=== PATIENT | female | born 1955 | race Caucasian/White ===

== ENCOUNTER → 2018-05-18 | Day surgery (SDC) | payer OTHER ==
[2018-05-17 11:29] LABS: ANION GAP 12.4 mmol/L (8-16); BLOOD UREA NITROGEN 19 mg/dL (7-26); BUN/CREATININE RATIO 24 (6-25); CALCIUM 10.9 mg/dL (8.4-10.2); CARBON DIOXIDE 29 mmol/L (22-29); CHLORIDE 103 mmol/L (98-107); CREATININE, SERUM 0.79 mg/dL (0.57-1.11); EST GLOMERULAR FILTRATION RATE > 60 ML/MIN (60-); GLUCOSE 100 mg/dL (74-118); POTASSIUM 4.4 mmol/L (3.5-5.1); SODIUM 140 mmol/L (136-145)
--- NOTE | 2018-05-17 11:47 | Diagnostic Imaging Report ---
PROCEDURE: Frontal and lateral views of the chest. COMPARISON: Patients [facility], , CHEST 2 VIEWS, 04/12/2016, 13:04. INDICATIONS: PREOPERATIVE CHEST XRAY FOR RIGHT FOOT SURGERY FINDINGS: Lines/tubes: None. Lungs: The lungs are well inflated and clear. There is no evidence of pneumonia or pulmonary edema. Pleura: There is no pleural effusion or pneumothorax. Heart and mediastinum: The heart and the mediastinum are normal. Bones: No acute bony abnormality. IMPRESSION: 1. No acute cardiopulmonary abnormalities. Yasir Cerna M.D. Dictated by: Yasir Cerna M.D. on 05/17/2018 at 11:51 Electronically approved by: Yasir Cerna M.D. on 05/17/2018 at 11:51
[~2018-05-18] MED LIST: ACETAMINOPHEN 1000 MG/100 ML IV ONE; BUPIVACAINE HCL 0.5% INJ 30 ML VIAL INJ ONE; CEFAZOLIN SOD 1 GM VIAL ONE; CEFAZOLIN SOD 2 GM/D5W 50ML 0 ML IV ONE; DEXAMETHASONE SOD PHOS INJ 4 MG/ML VIAL ONE; EPHEDRINE SULFATE INJ 50 MG/10 ML SYR ONE; FENTANYL CITRATE/PF 100MCG/2 ML INJ ONE; HYDROCHLOROTHIA25 MG PO; KETOROLAC TROMETHAMINE 30 MG/ML VIAL ONE; LIDOCAINE HCL 2% LOCAL INJ 5 ML SDV VIAL INJ ONE; MELOXICAM7.5 MG PO; MIDAZOLAM HCL 2 MG/2 ML VIAL ONE; MUPIROCIN 2% OINT 22 GM TUBE ONE; ONDANSETRON HCL INJ 2 MG/ML VIAL ONE; PROPOFOL IV EMULSION 10 MG/ML 20 ML VIAL ONE; RANITIDINE PO; SEVOFLURANE INHAL SOLN 250 ML PEN BTL ONE; VICTOZA 3-0.6 MG/0.1 INJ
--- NOTE | 2018-05-18 08:18 | Operative Report ---
DATE OF PROCEDURE: May 18, 2018 PREOPERATIVE DIAGNOSES 1. Right hallux rigidus. 2. 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 POSTOPERATIVE DIAGNOSES 1. Right hallux rigidus. 2. 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 PLANNED PROCEDURES 1. Right Hooper bunionectomy with implant. 2. Right excision of 2nd interspace neuroma. SURGEON: Dr. Robel DPM ESTIMATOR JEWELRY: Alfred Amezquita DPM ANESTHESIA: General with a postoperative block consisting of 15 mL of 0.5% Marcaine plain mixed with 1 mL of dexamethasone phosphate. HEMOSTASIS: Pneumatic thigh tourniquet set at 350 mmHg for a total time of approximately 40 minutes. MATERIALS: One into bone size 2 reference toe reimplant, 2-0 Vicryl, 3-0 Vicryl, 4-0 Prolene. ESTIMATED BLOOD LOSS: Less than 10 mL. PATHOLOGY: None. PROCEDURE NOTE: The patient was seen in the preoperative waiting room where the correct procedure and site was identified. The patient was brought into the operating room and placed on the operating table in the supine position. General anesthesia was initiated at this time. A well-padded pneumatic tourniquet was placed about the patient's right thigh. The right foot, ankle and leg was then scrubbed, prepped and draped in the usual aseptic manner. The right foot, ankle and leg was exsanguinated with an Esmarch bandage. The pneumatic thigh tourniquet was inflated to 350 mmHg for a total time of approximately 40 minutes. Attention was directed to the dorsomedial aspect of the patient's right 1st metatarsophalangeal joint where a 5 cm curvilinear incision was made over the 1st metatarsophalangeal joint medial to the extensor hallucis longus tendon. The incision was carried through the subcutaneous tissues them from deeper underlying structures. All vital neurovascular structures were identified and retracted medially and laterally, and all bleeders were cauterized or ligated as deemed necessary. Utilizing a sagittal saw, the base of the proximal phalanx approximately one-third was resected and passed off to the back table. Next, utilizing a sagittal saw, the medial imminence and dorsal imminence of the 1st metatarsal head was excised and passed off to the back table. The distal articular cartilage was excised. Prior to removing the articular cartilage, it was noted to be greater than 50% denuded articular surfaces at the metatarsal head, as well as the base of the proximal phalanx. At this point, per wind turbine mechanic protocol, a drill guide was placed into the 1st metatarsal head. This was confirmed via intraoperative fluoroscopy to be in the correct location. Next, the proximal reamer was placed over the guidewire to allow for the whole for the seating of the implant. Next, guidewire was placed in the resected proximal phalanx again confirmed via intraoperative fluoroscopy. The distal reamer was utilized to create the space for the distal portion of the implant. Next, utilizing the grommet clasp, the grommets were placed and tamped into position. Next, the implant which had been soaking in Bacitracin and sterile saline was placed into the operative site and found to be functioning appropriately. This was confirmed via intraoperative fluoroscopy. the wound was then flushed with copious amounts of sterile saline. Capsule and deep tissue were reapproximated with 2-0 Vicryl, subcutaneous tissue with 3-0 Vicryl, and the skin was closed using a running interlocking stitch of 4-0 Prolene. Excision of 2nd interspace neuroma, right foot. A 4 cm linear incision was made directly over the 2nd interspace in between the 2nd and 3rd metatarsals. The incision was carried through the subcutaneous tissues them from deeper underlying structures. All vital neurovascular structures were identified and retracted medially and laterally, and all bleeders were cauterized or ligated as deemed necessary. At this time, the deep transverse metatarsal ligament was incised to allow for good visualization of the interspace. The interdigital nerve with its proper digital branches were identified. They were noted to be inflamed and tortuous at the bifurcation. This was dissected distally, cut at the proper digital branches, dissected proximally, and allowed to retract into the foot. The wound was then flushed with copious amounts of sterile saline. Deep tissue was reapproximated with 3-0 Vicryl, and the skin was closed using a running interlocking stitch with 4-0 Prolene. Both incision sites were dressed with Adaptic, 4 x 4's, Kerlix, Cb wrap, and a postop shoe. The patient tolerated the procedure and anesthesia well. The patient was transferred to the postoperative recover unit with vital signs stable and vascular status intact. The patient was monitored there for a short period of time before being sent home with the following written and oral instructions: 1. Keep the dressing clean, dry and intact. 2. The patient is to remain partial weightbearing in a postop shoe, and to avoid excessive ambulation until being seen in the office. 3. The patient was given the office number and instructed to contact us if any problems should arise. DICTATED BY ALFRED AMEZQUITA DPM Job#: [id number] LEN
== END | disposition home or self-care (01) ==
LOC: OR 05:03
PROVIDERS: ATTEND Podiatrist Foot & Ankle Surgery
DX: M20.21 Hallux rigidus, right foot (principal); G57.61 Lesion of plantar nerve, right lower limb; E11.9 Type 2 diabetes mellitus without complications; I10 Essential (primary) hypertension; Z01.810 Encounter for preprocedural cardiovascular examination; Z01.812 Encounter for preprocedural laboratory examination; Z01.818 Encounter for other preprocedural examination; Z79.84 Long term (current) use of oral hypoglycemic drugs
CPT/HCPCS: 28080; 28291; 36415 ×2; 71046; 80048; 82948; 93005; J0690; J1100; J1885; J2001; J2250; J2405; L8642

== ENCOUNTER → 2020-07-15 | Day surgery (SDC) | payer OTHER ==
[2020-07-10 11:03] LABS: ANION GAP 16.7 mmol/L (8-16); BLOOD UREA NITROGEN 16 mg/dL (7-26); BUN/CREATININE RATIO 18 (6-25); CALCIUM 9.2 mg/dL (8.4-10.2); CARBON DIOXIDE 26 mmol/L (22-29); CHLORIDE 102 mmol/L (98-107); CREATININE, SERUM 0.89 mg/dL (0.57-1.11); EST GLOMERULAR FILTRATION RATE > 60 ML/MIN (60-); GLUCOSE 92 mg/dL (74-118); POTASSIUM 3.7 mmol/L (3.5-5.1); SODIUM 141 mmol/L (136-145)
[~2020-07-15] MED LIST changes: -ACETAMINOPHEN 1000 MG/100 ML IV ONE; -CEFAZOLIN SOD 1 GM VIAL ONE; +CEFAZOLIN SOD 1 GM/NS 50ML 50 ML IV ONE; -CEFAZOLIN SOD 2 GM/D5W 50ML 0 ML IV ONE; +DICLOFENAC SODI25 MG; -EPHEDRINE SULFATE INJ 50 MG/10 ML SYR ONE; -LIDOCAINE HCL 2% LOCAL INJ 5 ML SDV VIAL INJ ONE; +LIPITOR20 MG PO; -MUPIROCIN 2% OINT 22 GM TUBE ONE; -ONDANSETRON HCL INJ 2 MG/ML VIAL ONE; +ONDANSETRON HCL INJ 2MG/ML 2ML 2 MG/ML VIAL ONE
[2020-07-15 08:45] VITALS: BP 136/84
--- NOTE | 2020-07-15 09:51 | Operative Report ---
DATE OF PROCEDURE: 07/15/2020 SURGEON: Alfred Carrasco DPM PREOPERATIVE DIAGNOSES: 1. 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 2. Right 2nd digit hammertoe. PLANNED PROCEDURE: 1. Right second digit arthroplasty. 2. Right excision of 3rd interspace neuroma. SURGEON: Kenyatta Huston DPM ([place]). DRY PRESS OPERATOR HELPER: Alfred Carrasco DPM. ANESTHESIA: General with a postoperative block consisting of 15 mL of 0.5% Marcaine plain mixed with 1 mL of dexamethasone phosphate. HEMOSTASIS: Pneumatic thigh tourniquet set at 350 mmHg for a total time of approximately 35 minutes. MATERIALS: Medium sized [employer] implant, 1.1 K-wire, 3-0 Vicryl, 4-0 nylon. PATHOLOGY: None. ESTIMATED BLOOD LOSS: Less than 10 mL. PROCEDURE NOTE: The patient was seen in the preoperative waiting room where the correct procedure and site was noted. The patient was brought to the operating room and placed on the operating table in a supine position. General anesthesia was initiated. At this time, a well-padded pneumatic tourniquet was placed about the patient's right thigh. The right foot, ankle, and leg was scrubbed, prepped, and draped in the usual aseptic manner. The right foot, ankle and leg was exsanguinated with an Esmarch bandage and the pneumatic thigh tourniquet was inflated to 350 mmHg for a total time of approximately 30 minutes. Attention was directed to the dorsal aspect of the patient's right 2nd proximal interphalangeal joint where a 2 cm linear incision was made. Incision was carried through the subcutaneous tissue them from deep or underlying structures. All vital and neurovascular structures were identified and retracted medially and laterally. All bleeders were cauterized or ligated as deemed necessary. Next, the head of the proximal phalanx was excised utilizing a sagittal saw. Next, per manufacture protocol, the 1.1 K-wire was drilled through the middle and distal phalanx and utilizing the cartilage denuder the cartilage was denuded off the base of the middle phalanx. Next, a hand drill was performed to the proximal and distal aspects of the proximal interphalangeal joint. Next, the implant was placed and drilled into the middle phalanx and then impacted onto the proximal phalanx and the K-wire was drilled through the metatarsophalangeal joint and this was confirmed via intraoperative fluoroscopy. Next, a stab incision was made to perform a tenotomy at the level of the 2nd metatarsophalangeal joint. Incision was then directed to the 3rd interspace, where a 4 cm linear incision was made. The incision was carried to the subcutaneous tissue them from deep or underlying structures. All vital and neurovascular structures were identified, retracted medial and lateral and all bleeders were cauterized or ligated as deemed necessary. At this time, the deep transverse metatarsal ligament was incised to allow for good visualization of the interspace neuroma and it was noted to be tortuous, enlarged, and inflamed. The neuroma was grasped at the aspect of the bifurcation and dissected distally and proximally. The proper digital branches were cut distally and the proximal nerve was dissected into the proximal aspect of the foot and allowed to retract into the foot. The wound was then copiously irrigated with sterile saline. Deep tissues were approximated with 3-0 Vicryl, subcutaneous tissue with 3-0 Vicryl and the skin was closed using a running interlocking stitch of 4-0 Prolene. The incision site was then dressed with Adaptic, 4x4s, Kerlix, Cb wrap, and a postop shoe. The patient tolerated the procedure and anesthesia well. The patient was transferred to the postop recovery with vital signs stable and vascular status intact. The patient was monitored there for a short period of time before being sent home with the following written and oral instructions. 1. Keep the dressing clean, dry, and intact. 2. The patient is to remain partial weightbearing in a postop shoe to avoid excessive ambulation until being seen in the office. 3. The patient was given the office number, instructed to contact us if any problems arise. Dictated by Alfred Carrasco DPM S LISA Best ([place])/MODL /[id number]
== END | disposition home or self-care (01) ==
LOC: OR 05:13
PROVIDERS: ATTEND Podiatrist Foot & Ankle Surgery
DX: M20.41 Other hammer toe(s) (acquired), right foot (principal); G57.61 Lesion of plantar nerve, right lower limb; I10 Essential (primary) hypertension; Z01.810 Encounter for preprocedural cardiovascular examination; Z01.812 Encounter for preprocedural laboratory examination; Z11.59 Encounter for screening for other viral diseases
CPT/HCPCS: 28080; 28285; 36415; 80048; 93005; C1713; J0690; J1100; J1885; J2250; J2405; J2704; J3010; U0002